=== PATIENT | male | born 1990 | race Caucasian/White ===

== ENCOUNTER 2019-04-07 03:38 | Emergency (ER) | payer OTHER ==
[2019-04-07] MEDS ORDERED: ACETAMINOPHEN TAB 325 MG TAB PO STA (03:57)
[2019-04-07] MEDS ORDERED: SODIUM CHLORIDE 0.9% 1,000 ML IV ONE (03:57)
[2019-04-07] MEDS ORDERED: IBUPROFEN 400 MG TAB PO STA (03:57)
--- NOTE | 2019-04-07 04:00 | ED ---
Fever HPI - General Chief Complaint: Fever Stated Complaint: Fever Time Seen by Provider: 04/07/19 03:47 Source: patient Mode of arrival: ambulatory Limitations: no limitations - History of Present Illness MD Complaint: fever -: hour(s) Temperature Source: subjective Associated Symptoms: rhinorrhea, nasal congestion Treatments Prior to Arrival: none - Related Data Allergies Allergy/AdvReac Type Severity Reaction Status Date / Time No Known Allergies Allergy Verified 04/07/19 04:25 Review of Systems ROS Statement: Those systems with pertinent positive or pertinent negative responses have been documented in the HPI. ROS Other: All systems not noted in ROS Statement are negative. Constitutional: Reports: fever, chills. Denies: weakness ENT: Reports: congestion. Denies: ear pain, throat pain Respiratory: Denies: cough, dyspnea Cardiovascular: Denies: chest pain, palpitations, syncope Gastrointestinal: Denies: abdominal pain, nausea, vomiting Genitourinary: Denies: dysuria, frequency, hematuria, discharge Musculoskeletal: Denies: back pain Skin: Denies: rash Neurological: Denies: headache, weakness, numbness, paresthesias Past Medical History Past Medical History: No Reported History History of Any Multi-Drug Resistant Organisms: None Reported Past Surgical History: Orthopedic Surgery Past Psychological History: No Psychological Hx Reported Smoking Status: Former smoker Past Alcohol Use History: None Reported Past Drug Use History: None Reported General Exam Limitations: no limitations General appearance: alert, in no apparent distress Head exam: Present: atraumatic, normocephalic Eye exam: Present: normal appearance. Absent: scleral icterus, conjunctival injection ENT exam: Present: normal oropharynx Neck exam: Present: normal inspection, full ROM. Absent: tenderness, meningismus, lymphadenopathy Respiratory exam: Present: normal lung sounds bilaterally. Absent: respiratory distress, wheezes, rales, rhonchi, stridor Cardiovascular Exam: Present: regular rate, normal rhythm, normal heart sounds. Absent: systolic murmur, diastolic murmur, rubs, gallop GI/Abdominal exam: Present: soft. Absent: tenderness, guarding, rebound, mass Back exam: Present: normal inspection. Absent: CVA tenderness (R), CVA tenderness (L) Neurological exam: Present: alert Skin exam: Present: warm, dry, intact, normal color. Absent: rash Course Vital Signs 04/07/19 04/07/19 04/07/19 03:41 05:04 05:56 Temperature 102.8 F H 102.6 F H 99.2 F Pulse Rate 101 H 105 H 91 Respiratory 20 18 18 Rate Blood Pressure 101/59 115/64 117/44 O2 Sat by Pulse 98 96 98 Oximetry Medical Decision Making - Lab Data Lab Results 04/07/19 04/07/19 Range/Units 04:13 04:34 Urine Color Yellow Urine Appearance Clear (Clear) Urine pH 8.5 H (5.0-8.0) Ur Specific [place] 1.029 (1.001-1.035) Urine Protein 1+ H (Negative) Urine Glucose (UA) Negative (Negative) Urine Ketones Trace H (Negative) Urine Blood Negative (Negative) Urine Nitrite Negative (Negative) Urine Bilirubin Negative (Negative) Urine Urobilinogen 2.0 (<2.0) mg/dL Ur Leukocyte Esterase Negative (Negative) Urine RBC <1 (0-5) /hpf Urine WBC 4 (0-5) /hpf Ur Squamous Epith Cells 1 (0-4) /hpf Urine Mucus Rare H (None) /hpf Group A Strep Rapid Negative (Negative) Disposition Clinical Impression: Viral syndrome Disposition: HOME SELF-CARE Instructions (If sedation given, give patient instructions): Fever in Adults (ED), Viral Syndrome (ED) Is patient prescribed a controlled substance at d/c from ED?: No Referrals: None,Stated [Primary Care Provider] - 1-2 days
[2019-04-07 04:56] LABS: Appearance,Urine Clear (Clear); Bilirubin,Urine Negative (Negative); Blood,Urine Negative (Negative); Color,Urine Yellow; Glucose,Urine (UA) Negative (Negative); Ketones,Urine Trace (Negative); Leukocyte Esterase,Urine Negative (Negative); Mucus,Urine Rare /hpf; Nitrite,Urine Negative (Negative); PH, Urine 8.5 (5.0-8.0); Protein,Urine 1+ (Negative); RBC,Urine <1 /hpf (0-5); Specific Gravity,Urine 1.029 (1.001-1.035); Squamous Epithelial Cell,Urine 1 /hpf (0-4); WBC,Urine 4 /hpf (0-5)
[2019-04-07 05:04] VITALS: RESP 18
[2019-04-07 05:57] VITALS: BP 117/44; PULSE 91; TEMP 99.2
== END 2019-04-07 06:21 | disposition home or self-care (01) ==
LOC: EC 03:38
DX: B34.9 Viral infection, unspecified (principal); Z87.891 Personal history of nicotine dependence
CPT/HCPCS: 81001; 87081; 87430; 96360; 99283

== ENCOUNTER → 2019-08-16 | Outpatient (CLI) | payer OTHER ==
--- NOTE | 2019-08-16 10:17 | XR ---
Dressing spine HISTORY: Trauma and pain Frontal and lateral thoracic spine view submitted on a total of 4 images There is a spinal curvature. Multilevel spondylosis is present. Mild anterior wedging at the midthora cic vertebral body level and approximately T6 may be physiologic. Bone mineralization is maintained. Some loss of disc height at intervertebral levels of the midthoracic spine is noted. IMPRESSION: Degenerative disc disease, mild spinal curvature. Possible physiologic wedging of the mid thoracic vertebral bodies described, thoracic MRI may be of benefit.
== END | disposition home or self-care (01) ==
LOC: RADXRMAIN 09:44
PROVIDERS: ATTEND Emergency Medicine
DX: M50.30 Other cervical disc degeneration, unspecified cervical region (principal)
CPT/HCPCS: 72072

== ENCOUNTER 2021-06-22 16:03 | Emergency (ER) | payer OTHER ==
--- NOTE | 2021-06-22 16:21 | ED ---
General Adult HPI - General Chief complaint: Headache Stated complaint: Headache/Not Feeling Well Time Seen by Provider: 06/22/21 16:09 Source: patient, RN notes reviewed Mode of arrival: ambulatory Limitations: no limitations - History of Present Illness Initial comments: Patient is a pleasant 31-year-old male presenting to the emergency Department not feeling well. Onset of symptoms was around 3 or 3/2 days ago. Patient is having mild to moderate headaches. Headaches are controlled with ibuprofen. Headache is mild at this time. Patient states he did take ibuprofen just a couple hours ago. Patient is having joint aches. No fevers. Patient does have a mild cough. No dyspnea. Patient has decreased appetite. Patient states since of taste may be off a tiny bit. No change in smell. No abdominal pain. Patient is fatigued. - Related Data Home Medications Medication Instructions Recorded Confirmed No Known Home Medications 06/22/21 06/22/21 Allergies Allergy/AdvReac Type Severity Reaction Status Date / Time No Known Allergies Allergy Verified 06/22/21 17:06 Review of Systems ROS Statement: Those systems with pertinent positive or pertinent negative responses have been documented in the HPI. ROS Other: All systems not noted in ROS Statement are negative. Constitutional: Denies: fever Eyes: Denies: eye pain ENT: Denies: ear pain Respiratory: Reports: cough. Denies: dyspnea Cardiovascular: Denies: chest pain Endocrine: Reports: fatigue Gastrointestinal: Denies: abdominal pain Genitourinary: Denies: dysuria Musculoskeletal: Denies: back pain Skin: Denies: rash Neurological: Denies: weakness Past Medical History Past Medical History: No Reported History History of Any Multi-Drug Resistant Organisms: None Reported Past Surgical History: Orthopedic Surgery Past Psychological History: No Psychological Hx Reported Smoking Status: Never smoker Past Alcohol Use History: None Reported Past Drug Use History: None Reported General Exam Limitations: no limitations General appearance: alert, in no apparent distress Head exam: Present: normocephalic Eye exam: Present: normal appearance Neck exam: Present: normal inspection. Absent: tenderness, meningismus Respiratory exam: Present: normal lung sounds bilaterally Cardiovascular Exam: Present: regular rate, normal rhythm GI/Abdominal exam: Present: soft. Absent: tenderness Extremities exam: Present: normal inspection. Absent: pedal edema, calf tenderness Neurological exam: Present: alert. Absent: motor sensory deficit Psychiatric exam: Present: normal affect, normal mood Skin exam: Present: normal color Course Vital Signs 06/22/21 06/22/21 16:05 17:08 Temperature 98.1 F Pulse Rate 61 Respiratory 16 18 Rate Blood Pressure 131/77 O2 Sat by Pulse 98 Oximetry EKG Findings - EKG Comments: EKG Findings:: Sinus bradycardia with a rate of 58. W[place] 132. QRS 88. QT 394. QTC 36. Normal axis. Normal QRS. No acute ST change. Medical Decision Making - Medical Decision Making Patient reevaluated and updated. Patient is receptive to receiving antibody treatment and this has been ordered. Patient will be discharged following observation. - Lab Data Result diagrams: 06/22/21 16:49 Lab Results 06/22/21 06/22/21 06/22/21 Range/Units 16:49 16:49 16:49 WBC 5.2 (3.8-10.6) k/uL RBC 5.51 (4.30-5.90) m/uL Hgb 16.5 (13.0-17.5) gm/dL Hct 49.1 (39.0-53.0) % MCV 89.0 (80.0-100.0) fL MCH 29.9 (25.0-35.0) pg MCHC 33.5 (31.0-37.0) g/dL RDW 13.3 (11.5-15.5) % Plt Count 263 (150-450) k/uL MPV 6.8 Neutrophils % 67 % Lymphocytes % 21 % Monocytes % 8 % Eosinophils % 2 % Basophils % 1 % Neutrophils # 3.4 (1.3-7.7) k/uL Lymphocytes # 1.1 (1.0-4.8) k/uL Monocytes # 0.4 (0-1.0) k/uL Eosinophils # 0.1 (0-0.7) k/uL Basophils # 0.0 (0-0.2) k/uL PT 9.7 (9.0-12.0) sec INR 0.9 (<1.2) APTT 22.9 (22.0-30.0) sec Plasma Lactic Acid Darrel 1.9 (0.7-2.0) mmol/L Coronavirus (PCR) (Not Detectd) 06/22/21 Range/Units 16:49 WBC (3.8-10.6) k/uL RBC (4.30-5.90) m/uL Hgb (13.0-17.5) gm/dL Hct (39.0-53.0) % MCV (80.0-100.0) fL MCH (25.0-35.0) pg MCHC (31.0-37.0) g/dL RDW (11.5-15.5) % Plt Count (150-450) k/uL MPV Neutrophils % % Lymphocytes % % Monocytes % % Eosinophils % % Basophils % % Neutrophils # (1.3-7.7) k/uL Lymphocytes # (1.0-4.8) k/uL Monocytes # (0-1.0) k/uL Eosinophils # (0-0.7) k/uL Basophils # (0-0.2) k/uL PT (9.0-12.0) sec INR (<1.2) APTT (22.0-30.0) sec Plasma Lactic Acid Darrel (0.7-2.0) mmol/L Coronavirus (PCR) Detected A (Not Detectd) - Radiology Data Radiology results: image reviewed (Chest x-ray: Cannot rule out early infiltrate right lower lobe.) Disposition Clinical Impression: COVID-19 Disposition: HOME SELF-CARE Condition: Stable Instructions (If sedation given, give patient instructions): Viral Syndrome (ED), Fever in Adults (ED) Additional Instructions: Continue elid-nua-rsygqju Tylenol or Motrin as needed for fever or headaches. Iuwp-jmq-hhrnmlp vitamin C, vitamin D, and zinc. Melatonin may be of some benefit as well. Please follow-up with primary care physician in the next couple days for recheck. Please continue to quarantine yourself from 10 days past the onset of symptoms. Return for difficulty breathing, uncontrolled fevers, not tolerating oral intake, worsening symptoms or other concerns. Is patient prescribed a controlled substance at d/c from ED?: No Referrals: Jose Chandler [STAFF PHYSICIAN] - 1-2 days Time of Disposition: 17:28
--- NOTE | 2021-06-22 16:40 | XR ---
EXAMINATION TYPE: XR chest 2V DATE OF EXAM: 06/22/2021 COMPARISON: NONE HISTORY: Cough TECHNIQUE: Frontal and lateral views of the chest are obtained. FINDINGS: The cardiomediastinal silhouette appears within normal limits. Small right lower lobe opacity. No ple ural effusion or pneumothorax. Visualized osseous structures and upper abdomen appear unremarkable. IMPRESSION: Small right lower lobe opacity, which may represent developing pneumonia in the appropriate clinical setting.
[2021-06-22 17:04] LABS: Basophils % (A) 1 %; Eosinophils # (A) 0.1 k/uL (0-0.7); Eosinophils % (A) 2 %; HCT 49.1 % (39.0-53.0); HGB 16.5 gm/dL (13.0-17.5); Lymphocytes # (A) 1.1 k/uL (1.0-4.8); Lymphocytes % (A) 21 %; MCH 29.9 pg (25.0-35.0); MCHC 33.5 g/dL (31.0-37.0); Mean Platelet Volume 6.8; Monocytes # (A) 0.4 k/uL (0-1.0); Monocytes % (A) 8 %; Neutrophils # (A) 3.4 k/uL (1.3-7.7); Neutrophils % (A) 67 %; Platelet Count 263 k/uL (150-450); RBC 5.51 m/uL (4.30-5.90); RDW 13.3 % (11.5-15.5); WBC 5.2 k/uL (3.8-10.6)
[2021-06-22 17:15] LABS: INR 0.9 (<1.2); Partial Thromboplastin Time 22.9 sec (22.0-30.0); Prothrombin Time 9.7 sec (9.0-12.0)
[2021-06-22] MEDS ORDERED: SODIUM CHLORIDE 0.9% 50 ML IVPB ONE (18:00)
[2021-06-22] MEDS ORDERED: CASIRIVIMAB (REGN10933) (EUA) 600 MG, IMDEVIMAB (REGN10987) (EUA) 600 MG in SODIUM CHLO... IVPB ONE (18:30)
[2021-06-22 20:24] VITALS: BP 114/80; PULSE 60; RESP 18; TEMP 97.6
[2021-06-23 03:12] LABS: ALT 31 U/L (4-49); AST 41 U/L (17-59); African American GFR (CKD) >90 (>60 ml/min/1.73 sqM); Albumin 4.6 g/dL (3.5-5.0); Alkaline Phosphatase 81 U/L (38-126); Anion Gap 12 mmol/L; Blood Urea Nitrogen 15 mg/dL (9-20); C Reactive Protein 0.8 mg/dL (<1.0); Calcium 9.4 mg/dL (8.4-10.2); Carbon Dioxide 24 mmol/L (22-30); Chloride 105 mmol/L (98-107); Glucose 102 mg/dL (74-99); LDH 551 U/L (313-618); Non-African American GFR(CKD) >90 (>60 ml/min/1.73 sqM); Potassium 3.9 mmol/L (3.5-5.1); Sodium 141 mmol/L (137-145); Total Bilirubin 0.4 mg/dL (0.2-1.3); Total Protein 7.8 g/dL (6.3-8.2)
[2021-06-23 09:25] LABS: Ferritin 213.9 ng/mL (22.0-322.0)
== END 2021-06-22 20:10 | disposition home or self-care (01) ==
LOC: EC 16:03
DX: U07.1 COVID-19 (principal)
CPT/HCPCS: 36415; 71046; 80053; 82728; 83605; 83615; 83735; 84145; 85025; 85610; 85730; 86140; 87040; 87635; 93005; 96365; 99284

== ENCOUNTER 2021-09-12 06:49 | Emergency (ER) | payer OTHER ==
--- NOTE | 2021-09-12 07:08 | ED ---
General Adult HPI - General Chief complaint: ENT Stated complaint: Sore throat Source: patient, RN notes reviewed Mode of arrival: ambulatory Limitations: no limitations - History of Present Illness Initial comments: Patient is a 31-year-old male presenting to the ED for sore throat, rash and blisters on bilateral hands and feet. Patient states he started feeling ill yesterday Wednesday the with sore throat. Patient states he has a history of strep once yearly and noticed white spots on tonsils. Patient states had a fever early but hasn't had one since. Patient denies any nausea vomiting cough or congestion, changes in bowel movements or appetite. Patient describes discomfort with blisters/rashes on hands and feet but does state he is in work boots and works with his hands daily. Patient also states his son was positive for aevb-esgh-dvr-mouth one week prior with similar symptoms. - Related Data Home Medications Medication Instructions Recorded Confirmed No Known Home Medications 06/22/21 06/22/21 Allergies Allergy/AdvReac Type Severity Reaction Status Date / Time No Known Allergies Allergy Verified 09/12/21 06:54 Review of Systems ROS Statement: Those systems with pertinent positive or pertinent negative responses have been documented in the HPI. ROS Other: All systems not noted in ROS Statement are negative. Past Medical History Past Medical History: No Reported History History of Any Multi-Drug Resistant Organisms: None Reported Past Surgical History: Orthopedic Surgery Past Psychological History: No Psychological Hx Reported Smoking Status: Never smoker Past Alcohol Use History: None Reported Past Drug Use History: None Reported General Exam Limitations: no limitations General appearance: alert, in no apparent distress Head exam: Present: atraumatic, normocephalic, normal inspection ENT exam: Present: normal oropharynx, mucous membranes moist. Absent: normal exam (Erythematous sores on the palate) Expanded Mouth exam: Present: other (Soft palate papules) Throat exam: tonsillar erythema, tonsillar exudate (Bilateral) Respiratory exam: Present: normal lung sounds bilaterally. Absent: respiratory distress, wheezes, rales, rhonchi, stridor Cardiovascular Exam: Present: regular rate, normal rhythm, normal heart sounds. Absent: systolic murmur, diastolic murmur, rubs, gallop, clicks Left Hand Wrist exam: Present: other (Rash, blisters on palmar surface) Right Hand Wrist exam: Present: other (Rash, blisters on palmar surface) Right Foot/Toe exam: Present: erythema (Rash, blisters on the plantar surface) Neurological exam: Present: alert, oriented X3, CN II-XII intact Skin exam: Present: warm, dry, intact, normal color, rash (Bilateral hand palmar surface, right foot on plantar surface) Course Vital Signs 09/12/21 06:49 Temperature 98.5 F Pulse Rate 68 Respiratory 22 Rate Blood Pressure 119/70 O2 Sat by Pulse 98 Oximetry Medical Decision Making - Medical Decision Making Patient's strep is negative. Patient's son had recent gmxb-lhie-pxf-mouth disease. Patient's symptoms are consistent with yfcr-yteq-aea-mouth disease. Patient will be discharged with symptomatic control return parameters were dis cussed. - Lab Data Lab Results 09/12/21 Range/Units 07:19 Group A Strep Rapid Negative (Negative) Disposition Clinical Impression: Hand, foot and mouth disease Disposition: HOME SELF-CARE Condition: Stable Instructions (If sedation given, give patient instructions): Hand, Foot, and Mouth Disease (ED) Additional Instructions: Please return to the Emergency Department if symptoms worsen or any other concerns. Is patient prescribed a controlled substance at d/c from ED?: No Referrals: None,Stated [Primary Care Provider] - 1-2 days Time of Disposition: 07:57
[2021-09-12 08:12] VITALS: BP 122/71; PULSE 62; RESP 18; TEMP 98.2
== END 2021-09-12 08:05 | disposition home or self-care (01) ==
LOC: EC 06:49
DX: B08.4 Enteroviral vesicular stomatitis with exanthem (principal)
CPT/HCPCS: 87081; 87430; 99283